=== PATIENT | female | born 1990 | race Caucasian/White ===

== ENCOUNTER 2018-02-11 21:25 | Outpatient (CLI) | payer BC, MEDICAID ==
[2018-02-11 22:08] LABS: APPEARANCE,URINE SLIGHTLY-CLOUDY; BILIRUBIN,URINE NEGATIVE (NEGATIVE); COLOR,URINE YELLOW; GLUCOSE, URINE NEGATIVE (NEGATIVE); KETONES,URINE NEGATIVE (NEGATIVE); LEUKOCYTE ESTERASE,URINE SMALL (NEGATIVE); NITRITE,URINE NEGATIVE (NEGATIVE); PROTEIN,URINE NEGATIVE (NEGATIVE); URINE SPECIFIC GRAVITY 1.009
[2018-02-11 22:49] LABS: URINE AMPHETAMINES SCREEN NEGATIVE; URINE BARBITURATES SCREEN NEGATIVE; URINE BENZODIAZEPINES SCREEN NEGATIVE; URINE COCAINE SCREEN NEGATIVE; URINE MARIJUANA (THC) SCREEN NEGATIVE; URINE METHADONE SCREEN NEGATIVE; URINE PHENCYCLIDINE SCREEN NEGATIVE
[2018-02-11] MEDS ORDERED: ONDANSETRON 4 MG TAB.RAPDIS ONE (23:23)
[2018-02-11] MEDS ORDERED: HYDROXYZINE PAMOATE 50 MG CAPSULE ONE (23:23)
--- NOTE | 2018-02-11 23:44 | Non Stress Test Report ---
Non Stress Test Datetime Report Generated by CPN: 02/11/2018 23:44 DEMOGRAPHIC EGA NST: 40.4 INDICATION Indication for Study: Ordered by Provider; Other Indication for Study (NST) Other: NST URINE RESULTS Urine Protein, NST: Negative Urine Ketones - NST: Negative Urine Glucose - NST: Negative Urine Blood - NST: Positive MONITORING Monitor Explained: Monitor Explained; Test Explained; Patient Verbalized Understanding Time on Monitor: 02/11/2018 21:46 Time off Monitor: 02/11/2018 22:06 NST Duration: 20 NST INTERVENTIONS NST Interventions: Reposition Patient Physician Notified NST: Dr Taylor BABY A: [id number] BABY A Movement : Present Contraction Frequency : 2-6 FHR Baseline : 125 Accelerations : 15X15 Decelerations : None Variability : Moderate 6-25bpm NST Review: Meets Criteria for Reactive NST NST Review and Verified By : Layne Roberto RN NST Results: Reactive NST REPORT Report Trigger: Send Report
[2018-02-11] MEDS ORDERED: ONDANSETRON 4 MG TAB.RAPDIS PO ONE (23:49)
== END 2018-02-11 23:31 | disposition home or self-care (01) ==
LOC: LC 21:25
PROVIDERS: ATTEND Obstetrics & Gynecology
PROC: 4A1HXCZ Monitoring of Products of Conception, Cardiac Rate, External Approach (ICD-10-PCS; principal; 2018-02-11)
DX: Z34.93 Encounter for supervision of normal pregnancy, unspecified, third trimester (principal)
CPT/HCPCS: 59025; 81005; 80307; S0119

== ENCOUNTER 2018-02-13 07:33 | Inpatient (IN) | payer BC, MEDICAID ==
[2018-02-13] MEDS ORDERED: RINGERS SOLUTION,LACTATED 300 ML IV ONE (08:25)
[2018-02-13] MEDS ORDERED: RINGERS SOLUTION,LACTATED 1,000 ML IV PRN (08:25)
[2018-02-13] MEDS ORDERED: OXYTOCIN/NORMAL SALINE 20 UNIT/1,000 ML RTUINJ IV PRN ×2 (08:25→15:58)
[2018-02-13 08:59] LABS: APPEARANCE,URINE SLIGHTLY-CLOUDY; BILIRUBIN,URINE NEGATIVE (NEGATIVE); COLOR,URINE YELLOW; GLUCOSE, URINE NEGATIVE (NEGATIVE); KETONES,URINE NEGATIVE (NEGATIVE); LEUKOCYTE ESTERASE,URINE TRACE (NEGATIVE); NITRITE,URINE NEGATIVE (NEGATIVE); PROTEIN,URINE NEGATIVE (NEGATIVE); URINE SPECIFIC GRAVITY 1.015
[2018-02-13] MEDS ORDERED: VANCOMYCIN HCL 1,000 MG in DEXTROSE 5%-WATER 250 ML IV SCH (09:00)
--- NOTE | 2018-02-13 09:09 | Admission Physical ---
Datetime Report Generated by CPN: 02/13/2018 09:08 CURRENT ADMISSION Chief Complaint: Scheduled Induction of Labor Indication for Induction: Post Dates Admit Impression : Term, Intrauterine ; No Active Labor; Induction of Labor Admit Plan: Admit to Unit; Initiate Labor Induction Protocol ALLERGIES Medication Allergies: Yes Medication Allergies: amoxicillin/SV/Facial swelling (02/13/2018); coconut (02/13/2018) Latex: No Latex Allergies Food Allergies: coconut OBSTETRICAL HISTORY EDC: 02/07/2018 00:00 : 5 Para: 3 Term: 3 : 0 SAB: 1 IAB: 0 Ectopic: 0 Livin Cesareans: 0 VBACs: 0 Multiple Births: 0 Gestational Diabetes: No Rh Sensitization: No Incompetent Cervix: No LC: No Infertility: No ART Treatment: No Uterine Anomaly: No IUGR: No Hx Previous C/S: No Macrosomia: Yes Hx Loss/Stillborn: No PIH: No Hx : No Placenta Previa/Abruption: No Depression/PP Depression: No PTL/PROM: Yes Post Hemorrhage: No Current Procedures: Ultrasound; NST Obstetrical History Comments: G1: 2010 40 wk 9 lb 2 oz male, PTL resolved with bedrest G2: 2011 5 wk SAB G3: 2012 41 wk 7 lb 5 oz male G4: 2015 40.3 wk 6 lb 13 oz female G5: Current, EFW _8 lb 13 oz SEE RECORDS Alcohol: No Marijuana : No Cocaine: No Other Illicit Drugs: No Cigarettes: Never Smoker. 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 Heart Disease: No Hosp/Surgery: Yes Autoimmune Disorder: No Anesthetic Complications: No Kidney Disease: No Abnormal Pap Smear: No Neuro/Epilepsy: No Psychiatric Disorders: No Other Medical Diseases: No Hepatitis/Liver Disease: No Significant Family History: No Varicosities/Phlebitis: No Trauma/Violence : No Thyroid Dysfunction: No Medical History Comments: sx: R wrist, tonsils, gallbladder, hospitalization childbirth x 3 INFECTIOUS HISTORY Gonorrhea: No Genital Herpes: No Chlamydia: No Tuberculosis: No Syphilis: No Hepatitis: No HIV/AIDS Exposure: No Rash or Viral Illness: No HPV: No Infectious History Comments: 2011 chlamydia PHYSICAL EXAM General: Normal HEENT: Normal Neurologic: Normal Thyroid: Normal Heart: Normal Lungs: Normal Breast: Normal Back: Normal Abdomen: Normal Genitourinary Exam: Normal Extremities: Normal DTRs: Normal Pelvic Type: Adequate Vital Signs: Reviewed; Within Normal Limits VAGINAL EXAM Dilatation: 3 Effacement: 50 Station: -2 MEMBRANES Pooling: Negative Membranes: Intact FETUS A EGA: 40.6 Monitoring: External US FHR- Baseline: 130 Variability: Moderate 6-25bpm Accelerations: 15X15 Decelerations: None FHR Category: Category I Estimated Weight (gm): 3600 Presentation: Vertex PLANS FOR LABOR AND DELIVERY Labor and Delivery: Other, Specify Pain Management: Epidural Feeding Preference: Breast Benefit of Breast Feed Discussed: Yes Circumcision: Yes INFORMED CONSENT Signature: with User ID: [email or web address]
[2018-02-13 09:16] LABS: URINE AMPHETAMINES SCREEN NEGATIVE; URINE BARBITURATES SCREEN NEGATIVE; URINE BENZODIAZEPINES SCREEN NEGATIVE; URINE COCAINE SCREEN NEGATIVE; URINE MARIJUANA (THC) SCREEN NEGATIVE; URINE METHADONE SCREEN NEGATIVE; URINE PHENCYCLIDINE SCREEN NEGATIVE
[2018-02-13] MEDS ORDERED: OXYTOCIN/NORMAL SALINE 20 UNIT/1,000 ML RTUINJ ONE (09:27)
[2018-02-13] MEDS ORDERED: MISOPROSTOL 0.2 MG TABLET ONE (09:27)
[2018-02-13] MEDS ORDERED: LIDOCAINE 1% INJ-PF (10 MG/ML) 30 ML SDV ONE (09:27)
[2018-02-13 09:43] LABS: ABSOLUTE EOSINOPHILS # (AUTO) 0.1 10^3/uL (0.0-0.6); ABSOLUTE LYMPHOCYTES (AUTO) 1.6 10^3/uL (0.5-4.7); ABSOLUTE MONOCYTES (AUTO) 0.6 10^3/uL (0.1-1.4); ABSOLUTE NEUT (AUTO) 4.9 10^3/uL (1.7-8.2); BASOPHILS % (AUTO) 0.4 % (0-2); EOSINOPHILS % (AUTO) 1.5 % (0-6); HEMATOCRIT 35.3 % (36.0-47.0); HEMOGLOBIN 12.2 g/dL (12.0-15.5); LYMPHOCYTES % (AUTO) 22.7 % (13-45); MEAN CORPUSCULAR HEMOGLOBIN 30.6 pg (27.0-33.4); MEAN CORPUSCULAR HGB CONC 34.7 g/dL (32.0-36.0); MEAN CORPUSCULAR VOLUME 88 fl (80-97); MONOCYTES % (AUTO) 8.3 % (3-13); PLATELET COUNT 188 10^3/uL (150-450); RED BLOOD COUNT 3.99 10^6/uL (3.72-5.28); RED CELL DISTRIBUTION WIDTH 13.4 % (11.5-14.0); SEGMENTED NEUTROPHILS % (AUTO) 67.1 % (42-78); TOTAL CELLS COUNTED % (AUTO) 100 %; WHITE BLOOD COUNT 7.3 10^3/uL (4.0-10.5)
[2018-02-13] MEDS ORDERED: EPHEDRINE SULFATE INJ 50 MG/1 ML AMPULE ONE (13:13)
[2018-02-13] MEDS ORDERED: BUPIVACAINE HCL 0.25 % INJ/PF (2.5 MG/1 ML) 30 ML VIAL ONE (13:13)
[2018-02-13] MEDS ORDERED: FENTANYL/BUPIVACAINE/NS/PF 300 MCG/150 ML RTUINJ EPI ONE (13:13)
[2018-02-13] MEDS ORDERED: LIDOCAINE 1.5%/EPINEPHRINE INJ-PF 30 ML SDV ONE (13:29)
[2018-02-13] MEDS ORDERED: NA PHOS,M-B/NA PHOS,DI-BA (ADULT) 133 ML ENEMA PR PRN (15:58)
[2018-02-13] MEDS ORDERED: DIPHENHYDRAMINE HCL 25 MG CAPSULE PO PRN (15:58)
[2018-02-13] MEDS ORDERED: PROMETHAZINE HCL 25 MG TABLET PO PRN (15:58)
[2018-02-13] MEDS ORDERED: MAGNESIUM HYDROXIDE SUSP 30 ML UDCUP PO PRN (15:58)
[2018-02-13] MEDS ORDERED: DIPH/PERTUSS(ACELL)/TETANUS VAC/PF 0.5 ML SYR (>=10YO) IM PRN (15:58)
[2018-02-13] MEDS ORDERED: ACETAMINOPHEN WITH CODEINE #3 TABLET PO PRN (15:58)
[2018-02-13] MEDS ORDERED: MEASLES,MUMPS&RUBELLA VACC/PF 0.5 ML VIAL SUBCUT PRN (15:58)
[2018-02-13] MEDS ORDERED: PSEUDOEPHEDRINE HCL 30 MG TABLET PO PRN (15:58)
[2018-02-13] MEDS ORDERED: PROMETHAZINE HCL 25 MG SUPP.RECT PR PRN (15:58)
[2018-02-13] MEDS ORDERED: PROMETHAZINE HCL INJ 25 MG/1 ML VIAL IV PRN (15:58)
[2018-02-13] MEDS ORDERED: ZOLPIDEM TARTRATE 5 MG TABLET PO PRN (15:58)
[2018-02-13] MEDS ORDERED: GLYCERIN/WITCH HAZEL LEAF 1 EACH MED..PAD TP PRN (15:58)
[2018-02-13] MEDS ORDERED: ACETAMINOPHEN 650 MG SUPP.RECT PR PRN (15:58)
[2018-02-13] MEDS ORDERED: BENZOCAINE/MENTHOL AEROSOL SPRAY 56 ML TOP PRN (15:58)
[2018-02-13] MEDS ORDERED: DIBUCAINE 1% OINTMENT 28 GM TP PRN (15:58)
--- NOTE | 2018-02-13 17:41 | Warning Signs in Babies ---
VOD Warning Signs Datetime Report Generated by [facility]: 02/13/2018 17:41 VOD#608 -Warning Signs in Babies: Viewed with Parent(s)/Family (02/11/2018 21:39:Lenny Gaviria RN)
--- NOTE | 2018-02-13 18:14 | Delivery Summary ---
Del Sum A-C Datetime Report Generated by CPN: 02/13/2018 18:13 DELIVERY PERSONNEL DELIVERY PERSONNEL: [id number] Delivery Doctor:: Freda Quezada CNM Nurse Garment Parts Cutter Machine Certified:: Freda Quezada CNM Labor and Delivery Nurse:: Aguilar Gaviria RNship carpenter Nurse:: KEIRY Patel Nursery Nurse:: Gustavo RICCI Deputy Director Of Public Works/MATERIALS MGMT TECH: Chey Alvarez, CLASSIFICATION INSPECTOR MATERNAL INFORMATION Delivery Anesthesia: Epidural Medications After Delivery: Pitocin Bolus-Please Comment; Pitocin Drip 20 Units/1000ml NSS Estimated Blood Loss (ml): 100 Maternal Complications: None Provider Comments: Called to room 4 as patient complete and pushing but baby having decelerations. Dr Smith notified. Patient encouraged to push till delivery. live male in vertex OA to RODDY. Nuchal cord x 1-reduced. Shoulders delivered without difficulty. Meconium stained fluid. Bulb suctioned after delivery. Spontaneous respirations and cry. 3-vessel cord. Apgars 7-9. Cord clamped x2, after 2 min delay, then cut by FOB. Placenta, membranes, and cord expelled at 1539, [place]. Perineum inspected-intact. FF at U-3, hemostasis. Patient tolerated procedure well. LABOR SUMMARY EDC: 02/07/2018 00:00 No. Babies in Womb: 1 Attempted: No Labor Anesthesia: Epidural LABOR INFORMATION Reason for Induction: Post Dates Onset of Labor: 02/13/2018 13:45 Complete Dilatation: 02/13/2018 13:45 Oxytocin: Induction Group B Beta Strep: pos Antibiotics # of Doses: 1 Name of Antibiotic Given: vancomycin Steroids Given: None Reason Steroids Not Administered: Not Applicable MEMBRANES Membranes Rupture Method: Artificial Amniotic Fluid Color: Light Meconium Amniotic Fluid Amount: Moderate Amniotic Fluid Odor: Normal STAGES OF LABOR Stage 1 hr: 0 Stage 1 min: 0 Stage 2 hr: 1 Stage 2 min: 49 Stage 3 hr: 0 Stage 3 min: 5 Total Time in Labor hr: 1 Total Time in Labor min: 54 VAGINAL DELIVERY Episiotomy: None Laceration #1: None Laceration Repair: Not Applicable Sponge Count Correct: N/A Sharps Count Correct: Yes CSECTION DELIVERY Primary Indication: N/A Secondary Indication: N/A CSection Incidence: N/A Labor: N/A Elective: N/A CSection Incision: N/A BABY A INFORMATION Delivery Date/Time: 02/13/2018 15:34 Method of Delivery: Vaginal Born in Route : No : N/A Forceps: N/A Vacuum Extraction: N/A Shoulder Dystocia : No PRESENTATION/POSITION BABY A Presentation: Cephalic Cephalic Presentation: N/A Vertex Position: Right Occipital Anterior Breech Presentation: N/A PLACENTA INFORMATION BABY A Placenta Delivery Time : 02/13/2018 15:39 Placenta Method of Delivery: Spontaneous Placenta Status: Delivered SCORES BABY A Heart Rate 1 min: >100 bpm Resp Effort 1 min: Good Cry Reflex Irritability 1 min: Cough or Sneeze or Pulls Away Muscle Tone 1 min: Some Flexion of Extremities Color 1 min: Blue/Pale Resuscitation Effort 1 min: Tactile Stimulation SCORE 1 MIN: 7 Heart Rate 5 min: >100 bpm Resp Effort 5 min: Good Cry Reflex Irritability 5 min: Cough or Sneeze or Pulls Away Muscle Tone 5 min: Active Motion Color 5 min: Body [place], Extremities Blue Resuscitation Effort 5 min: N/A SCORE 5 MIN: 9 INFORMATION BABY A Gestational Age at Delivery: 40.6 Gestational Status: Full Term- 39- 40.6 Weeks Infant Outcome : Liveborn Infant Condition : Stable Sex: Male IDENTIFICATION BABY A Verification Date/Time: 02/13/2018 16:40 ID Band Number: [id number] Mother's Name Verified: Yes Infant RN Verifying Infant: Aguilar Gaviria RN Additional Verifying Personnel: ScottRodrigo Cerda RNC WEIGHT/LENGTH BABY A Birthweight (gm): 4110 Infant Weight (lb): 9 Weight (oz): 1 Length (in): 20.50 Length (cm): 52.07 CORD INFORMATION BABY A No. Cord Vessels: 3 Nuchal Cord : Around Neck x1, Loose Cord Blood Taken: Yes-For Eval (Mom's Blood Type - or O+) Infant Suction: Mouth ASSESSMENT BABY A Complications: Meconium Physical Findings at Delivery: Within Normal Limits Respirations: Appears Normal Skin to Skin: Yes Skin to Skin Time (min): 60 Metal Rolling Mill Operator/ALS Called : No Infant Care By: D. Itaemilkerry RNC Transferred To: Remains with Mother BABY B INFORMATION : N/A SIGNATURES Assignment: Cathy Smith MD Signature: with User ID: Zach : with User ID: Zach : I personally evaluated and examined the patient in conjunction with the MLP and agree with the assessment, treatment plan and disposition.
[2018-02-13] MEDS: DOCUSATE SODIUM 100 MG CAPSULE PO SCH (20:31)
[2018-02-13] MEDS: FERROUS SULFATE 325 MG TABLET PO SCH (20:31)
[2018-02-13] MEDS: IBUPROFEN 800 MG TABLET PO SCH (21:01)
[2018-02-13] MEDS: FAMOTIDINE 20 MG TABLET PO SCH (21:02)
[2018-02-14] MEDS: ACETAMINOPHEN WITH CODEINE #3 TABLET PO PRN ×2 (02:13→12:11)
[2018-02-14] MEDS: IBUPROFEN 800 MG TABLET PO SCH ×3 (05:04→21:45)
[2018-02-14 08:11] LABS: HEMATOCRIT 35.8 % (36.0-47.0); HEMOGLOBIN 12.5 g/dL (12.0-15.5); MEAN CORPUSCULAR HEMOGLOBIN 30.9 pg (27.0-33.4); MEAN CORPUSCULAR HGB CONC 34.8 g/dL (32.0-36.0); MEAN CORPUSCULAR VOLUME 89 fl (80-97); PLATELET COUNT 183 10^3/uL (150-450); RED BLOOD COUNT 4.03 10^6/uL (3.72-5.28); RED CELL DISTRIBUTION WIDTH 13.4 % (11.5-14.0); WHITE BLOOD COUNT 10.7 10^3/uL (4.0-10.5)
[2018-02-14] MEDS: SENNOSIDES/DOCUSATE 8.6-50 MG 1 EACH TABLET PO SCH (09:20)
[2018-02-14] MEDS: DOCUSATE SODIUM 100 MG CAPSULE PO SCH ×2 (09:20→18:48)
[2018-02-14] MEDS: PRENATAL VITAMIN W DHA CAPSULE PO SCH (09:21)
[2018-02-14] MEDS: FERROUS SULFATE 325 MG TABLET PO SCH ×2 (09:21→18:48)
[2018-02-14] MEDS: FAMOTIDINE 20 MG TABLET PO SCH ×2 (09:21→21:45)
--- NOTE | 2018-02-14 14:14 | PDOC PROGRESS REPORT ---
Subjective-OB Progress Note for:: 02/14/18 Subjective: reports tolerating diet, pain controlled with current meds, bleeding slowing, well Physical Exam (OB) Vital Signs: Temp Pulse Resp BP Pulse Ox 97.5 F 68 16 103/67 100 02/14/18 07:51 02/14/18 07:51 02/14/18 07:51 02/14/18 07:51 02/14/18 07:51 Intake & Output 02/13/18 02/14/18 02/15/18 06:59 06:59 06:59 Intake Total 400 Balance 400 Weight 112 kg - Abdomen Description: Soft Hernia Present: No Fundal Description: Firm, Midline Fundal Height: u/u - u/2 - Extremities Lower extremities: Malachi's sign - neg Calf: Normal, Nontender Objective-Diagnostic Laboratory: 02/14/18 07:00 02/14/18 02/14/18 07:00 07:54 WBC 10.7 H RBC 4.03 Hgb 12.5 Hct 35.8 L MCV 89 MCH 30.9 MCHC 34.8 RDW 13.4 Plt Count 183 Blood Type B NEGATIVE Assessment and Plan(PN) - Assessment and Plan (1) Normal vaginal delivery Is this a current diagnosis for this admission?: Yes - Time Spent with Patient Time with patient: Less than 15 minutes - Disposition Anticipated Discharge: Home Within: within 24 hours
[2018-02-15] MEDS: IBUPROFEN 800 MG TABLET PO SCH ×2 (06:42→13:44)
[2018-02-15 08:12] VITALS: BP 109/73
--- NOTE | 2018-02-15 08:53 | PDOC DISCHARGE SUMMARY ---
Final Diagnosis Discharge Date: 02/15/18 - Final Diagnosis (1) Normal vaginal delivery Is this a current diagnosis for this admission?: Yes Discharge Data - Discharge Medication Prescriptions: Acetaminophen with Codeine [Tylenol #3 Tablet] 1 each PO Q4HP PRN #20 tablet PRN Reason: Ibuprofen [Motrin 800 mg Tablet] 800 mg PO Q8 #90 tablet Home Medications: Vitamins 1 tab PO DAILY 08/24/11 Acetaminophen with Codeine [Tylenol #3 Tablet] 1 each PO Q4HP PRN #20 tablet 11/03 Docusate Sodium [Colace 100 mg Capsule] 100 mg PO BID capsule 02/15/18 Glycerin/[facility] [Tucks Take-Alongs Pads 1 Each] 1 each TP DAILYP PRN med..pad 02/15/18 Ibuprofen [Motrin 800 mg Tablet] 800 mg PO Q8 #90 tablet 02/15/18 Procedures: NST Intrapartum Procedure(s): Spontaneous Vaginal Delivery - Diagnosis Test Laboratory: Temp Pulse Resp BP Pulse Ox 97.7 F 77 16 109/73 97 02/15/18 07:25 02/15/18 07:25 02/15/18 07:25 02/15/18 07:25 02/15/18 07:25 02/13/18 02/13/18 02/14/18 07:49 09:20 07:00 RBC 3.99 4.03 Hgb 12.2 12.5 Hct 35.3 L 35.8 L Urine Opiates Screen NEGATIVE - Discharge information/Instructions Discharge Activity: Balance Activity w/Rest, Pelvic Rest Discharge Diet: Regular Disposition: HOME, SELF-CARE Follow up with: [facility] in: 4, Weeks
[2018-02-15] MEDS: DOCUSATE SODIUM 100 MG CAPSULE PO SCH (09:21)
[2018-02-15] MEDS: SENNOSIDES/DOCUSATE 8.6-50 MG 1 EACH TABLET PO SCH (09:21)
[2018-02-15] MEDS: PRENATAL VITAMIN W DHA CAPSULE PO SCH (09:21)
[2018-02-15] MEDS: FERROUS SULFATE 325 MG TABLET PO SCH (09:21)
[2018-02-15] MEDS: FAMOTIDINE 20 MG TABLET PO SCH (09:22)
== END 2018-02-15 16:02 | disposition home or self-care (01) | DRG 775 ==
LOC: LR 07:33 → 2S 18:30
PROVIDERS: ADMIT Obstetrics & Gynecology; ATTEND Obstetrics & Gynecology
PROC: 10E0XZZ Delivery of Products of Conception, External Approach (ICD-10-PCS; principal; 2018-02-13)
PROC: 3E033VJ Introduction of Other Hormone into Peripheral Vein, Percutaneous Approach (ICD-10-PCS; 2018-02-13)
PROC: 10907ZC Drainage of Amniotic Fluid, Therapeutic from Products of Conception, Via Natural or Artificial Opening (ICD-10-PCS; 2018-02-13)
PROC: 4A1HXCZ Monitoring of Products of Conception, Cardiac Rate, External Approach (ICD-10-PCS; 2018-02-13)
DX: O48.0 Post-term pregnancy (principal); O99.824 Streptococcus B carrier state complicating childbirth; O77.0 Labor and delivery complicated by meconium in amniotic fluid; O69.81X0 Labor and delivery complicated by cord around neck, without compression, not applicable or unspecified; Z88.1 Allergy status to other antibiotic agents; Z91.018 Allergy to other foods; Z3A.40 40 weeks gestation of pregnancy; Z37.0 Single live birth
CPT/HCPCS: 36415; 80307; 81005; 85025; 85027; 85461; 86592; 86850; 86900; 86901; 88307; 90715; 94760; J2590; J2790; J3010; J3370; J3490; J7060